=== PATIENT | male | born 1995 | race African-American/Black ===

== ENCOUNTER 2019-10-11 18:06 | Emergency (ER) | payer BC ==
[~2019-10-11] VITALS: Ht 177.8 cm; Wt 75.0 kg
[2019-10-11] MEDS ORDERED: AMOXICILLIN/POTASSIUM CLAVULANATE 875/125MG TAB PO ONE (19:00)
[2019-10-11] MEDS ORDERED: TETANUS, DIPHTHERIA, PERTUSSIS VAC/PF 0.5ML (>7YR OLD) IM ONE (19:00)
[2019-10-11] MEDS ORDERED: BACITRACIN ZINC OINT UDPKT TOP ONE (19:30)
[2019-10-11 19:56] VITALS: BP 121/62
== END 2019-10-11 20:01 | disposition home or self-care (01) ==
LOC: ER 18:06
DX: S61.452A Open bite of left hand, initial encounter (principal); Y04.1XXA Assault by human bite, initial encounter; Y93.89 Activity, other specified; Y92.89 Other specified places as the place of occurrence of the external cause
CPT/HCPCS: 73130; 90471; 90715; 99283